=== PATIENT | male | born 1995 | race Caucasian/White ===

== ENCOUNTER 2025-02-27 11:00 | Emergency (ER) | payer OTHER, SELFPAY ==
[2025-02-27 11:07] VITALS: BP 145/98
[2025-02-27 13:46] LABS: Hematocrit 47.2 % (39.0-52.0); Hemoglobin 15.7 g/dL (13.0-18.0); Mean Corp Hgb Conc. 33.3 g/dL (33.0-37.0); Mean Corpuscular Volume 87.9 fL (80.0-94.0); Nucleated Red Blood Cells % 0 % (-); Platelet Count 257 10^3/uL (130-400); Red Cell Dist. Width 14.2 % (11.5-14.5)
[2025-02-27] MEDS: NSS 500 IV (13:48)
[2025-02-27 13:49] VITALS: BP 137/96
[2025-02-27 14:04] LABS: ALT (SGPT) 37 U/L (0-50); AST (SGOT) 18 U/L (17-59); Albumin 4.1 g/dl (3.5-5.0); Alkaline Phosphatase 44 U/L (38-126); Blood Urea Nitrogen 9 mg/dl (9-20); Calcium 9.5 mg/dl (8.4-10.2); Carbon Dioxide 32 mmol/L (22-30); Chloride 104 mmol/L (98-107); Glucose 98 mg/dl (70-99); Magnesium 2.1 mg/dl (1.6-2.3); Potassium 4.3 mmol/L (3.5-5.1); Sodium 138 mmol/L (135-145); Total Protein 6.6 g/dl (6.3-8.2); eGFR > 60.00
[2025-02-27 14:08] LABS: C-Reactive Protein 15.40 mg/L (0.0-10.00)
--- NOTE | 2025-02-27 16:01 | ED.GENMED ---
History of Present Illness
General
Chief Complaint: Back Pain
Source: patient
Exam Limitations: none
Time Seen by Provider: 02/27/25 12:27
Nursing documentation reviewed up to this point in time: agreed with
History of Present Illness
History of Present Illness:
Patient presents to ED secondary to worsening lower and upper arms with numbness sensation over the past 3 months. Patient was evaluated by an orthopedic surgeon and outpatient MRI of the back has been ordered. Denies fever or chills. Denies
urinary or bowel incontinence. Denies direct trauma. Denies weakness. Denies recent illness. Denies previous history of similar symptoms.
Past History
Past History
ED Past Medical History: None
ED Past Surgical History: Appendectomy and Orthopedic (Right wrist surgery)
Social History
Tobacco: Non-smoker
Alcohol: Occasional
Drug: None
Personal: Single
Living: with family
Employment: Employed
Review of Systems
Review of Systems
Allergies reviewed?: Yes
All Other Systems: ROS reviewed and negative except as documented in HPI and ROS
Constitutional: Reports no symptoms
Cardiac: Reports no symptoms
ABD/GI: Reports no symptoms
: Denies incontinence
Musculoskeletal: Reports back pain
Skin: Reports no symptoms
Neurological: Reports numbness
Phy Exam
Physical Exam
Physical Exam:
Physical Exam
General: no apparent distress, not acutely ill. afebrile
Head: nc/at. eomi
Neck: supple. no meningeal signs.
Heart: s1/s2 regular rate and rhythm
Lungs: no acute respiratory distress. clear bilaterally
Abdomen: normal bowel sounds. not tender.
Neuro: alert and oriented x 3. no focal neurological deficits. normal speech
Skin: no rash
Psychiatric: well kept. interactive and cooperative
Extremities: no edema. no calf tenderness
Course
Orders/Labs/Results
Orders:
Orders
02/27/25 13:26
NEUROLOGY CONSULT Urgent
Consulting Provider: Winston Bennett
Was physician already notified: Yes
Reason for consult: numbness/weakness
02/27/25 13:27
0.9% Sodium Chloride 500 ml [Nss] 500 ml IV BOLUS
02/27/25 13:33
CBC/With ESR Urgent
CPK [Creatine Phosphokinase] Urgent
CRP [C-Reactive Protein] Urgent
Comprehensive Metabolic Panel Urgent
Magnesium Urgent
02/27/25 15:49
Triamcinolone Injectable [Kenalog-40] 40 mg IM NOW STA
02/27/25 15:52
Bupivacaine Pf 0.5% [Sensorcaine 0.5% Single Dose] 30 ml INJ OR ONE
Abnormal Lab Results
02/27/25
13:33
Abs Immat Gran (auto) 0.1 H 10^3/uL
(0-0.05)
Absolute Neuts (auto) 8.2 H 10^3/uL
(1.4-6.5)
Absolute Monos (auto) 0.9 H 10^3/uL
(0.1-0.6)
Neutrophils % 76.6 H %
(42.2-75.2)
Lymphocytes % 13.4 L %
(20.5-51.1)
Carbon Dioxide 32 H mmol/L
(22-30)
C-Reactive Protein 15.40 H mg/L
(0.0-10.00)
02/27/25 13:33
02/27/25 13:33
Vital Signs
Initial and Last Documented VS:
Initial Vital Signs
Temp Pulse Resp BP Pulse Ox
98.4 F 110 18 145/98 97
02/27/25 11:07 02/27/25 11:07 02/27/25 11:07 02/27/25 11:07 02/27/25 11:07
Last Documented Vital Signs
Temp Pulse Resp BP Pulse Ox
98.4 F 98 20 134/91 98
02/27/25 11:07 02/27/25 16:15 02/27/25 16:15 02/27/25 16:15 02/27/25 16:15
MDM/Problems Addressed
MDM/Problems Addressed:
Patient evaluated in ED by , neurology. Sciatic nerve block administered by Dr. Bennett, with improvement in symptoms. Feels the patient can be discharged home at this time with Lyrica 75 mg twice daily, along with already scheduled outpatient
MRI. Patient otherwise is afebrile, hemodynamically stable, and on neurologically intact, at time of discharge.
*Pulse Oximetry
SaO2: 98
Oxygen Mode of Delivery: Room air
Patient hypoxic: no
*Critical Care Note
Total Time (30-74mins, 75-104mins- exclusive of procedures): Not Applicable
ED Attending Note
-
Portions of this chart may have been created with voice recognition software.� Occasional wrong word or��sound alike� substitutions may have occurred due to the inherent limitations of voice recognition software.
Discharge Plan
Departure
Patient Disposition: Home (Routine Discharge)
Date of Disposition: 02/27/25
Time of Disposition: 16:04
Patient with high blood pressure during this ER visit?: Yes
Condition: Good
Discharge Problem:
Paresthesia
Instructions: Neuropathic pain
Prescriptions:
New
pregabalin [Lyrica] 75 mg capsule
75 mg PO BID Qty: 30 0RF
No Action
cephalexin 500 mg capsule
500 mg PO TID Qty: 9 0RF
Referrals:
NONE,* [Family Provider, Internal Medicine]
Activity Restrictions/Additional Instructions:
As discussed, please follow-up with your primary care physician and/or orthopedic surgeon for continual evaluation and treatment. Your prescription has been sent electronically to [facility] pharmacy in [place].
Interventions
Interventions:
*Risk Screen - Suicide Last Done: 02/27/25 11:07
*Neglect/Abuse Screening Last Done: 02/27/25 11:07
*ED COVID-19 Vaccine History Last Done: 02/27/25 11:07
*Nursing Disposition Last Done: 02/27/25 16:16
ED-Musculoskeletal Assessment Last Done: 02/27/25 11:24
Discharge Date and Time
Discharge Date/Time: 02/27/25 16:16
Print Language: WOLOF
--- NOTE | 2025-02-27 16:06 | CON.NEURO ---
Neuro Assessment/Plan
Assessment
spoke with patient ddx including CIDP given the presentation of 2 months progressive weakness/numbness somewhat asymmetric, absent right ankle reflex, can have pain component; also could be CRPS if EMG negative for CIDP
right thoracic outlet syndrome, responded to OMT first rib
rt leg sciatica, in setting of SI joint subluxation, sciatic nerve block performed today with improvement in foot/lateral calf pain
Plan
outpatient MRI lumbar as planned
recommending outpatient EMG
Lyrica 75
Consultation
Order
Date of Consultation: 02/27/25
Requesting Provider: Leonard Camacho
Reason for Consult: progressive weakness/numbness
Subjective/Objective
Subjective Data
Date of Service: February 27, 2025
from ED notes:
Patient presents to ED secondary to worsening lower and upper arms with numbness sensation over the past 3 months. Patient was evaluated by an orthopedic surgeon and outpatient MRI of the back has been ordered. Denies fever or chills. Denies
urinary or bowel incontinence. Denies direct trauma. Denies weakness. Denies recent illness. Denies previous history of similar symptoms.
patient reports began with pain and hyperesthesias in the right lateral foot with associated numbness. causing difficulty wearing shoes due to the sensitivity. This has progressed/ascended and spread to the left leg. some associated weakness,
difficulty ambulating distances.
Objective Data
Vital Signs
Temp Pulse Resp BP Pulse Ox
36.9 C 100 18 137/96 98
02/27/25 11:07 02/27/25 13:49 02/27/25 13:49 02/27/25 13:49 02/27/25 16:04
Lab Results
02/27/25 13:33
02/27/25 13:33
Sodium 138 mmol/L (135-145) 02/27/25 13:33
Potassium 4.3 mmol/L (3.5-5.1) 02/27/25 13:33
BUN 9 mg/dl (9-20) 02/27/25 13:33
Glucose 98 mg/dl (70-99) 02/27/25 13:33
Calcium 9.5 mg/dl (8.4-10.2) 02/27/25 13:33
Patient Allergies
peanut Allergy (Verified 02/27/25 11:13)
Unknown
tree nut Allergy (Verified 02/27/25 11:13)
Unknown
Physical Exam
-
AAOx3, speech clear, language intact
VFF, EOMI, face symmetric
decreased sensation pin right leg/lateral calf, decreased vibration left leg. Triple response of Kevin normal.
DTRs 1+ except right ankle absent reflex
grossly ful strength on MMT
tender rt first rib with palpated subluxation, +Sheryl and Paez signs
rt leg longer, palpated SI subluxation with SI joint tenderness
tender rt piriformis
Medications
-
Home Medications
�Medication �Instructions �Recorded
cephalexin 500 mg capsule 500 mg PO TID #9 caps 05/12/22
pregabalin 75 mg capsule (Lyrica) 75 mg PO BID #30 caps 02/27/25
[2025-02-27 16:15] VITALS: BP 134/91
--- NOTE | 2025-02-27 16:20 | W.PN.UPDATE ---
Update Note
Progress Note Update
procedure note
55541 sciatic nerve block
dx M54.3 sciatic neuralgia
10 cc syringe, 22g x1.5 in needle, 7 cc bupivacaine 0.5%, 40 mg Kenalog 40
injected right sciatic nerve at piriformis
== END 2025-02-27 16:16 | disposition home or self-care (01) ==
LOC: EMR 11:00
PROVIDERS: CONSULT PHYSICIAN Psychiatry & Neurology Clinical Neurophysiology; EMERGENCY PHYSICIAN Emergency Medicine
DX: R20.2 Paresthesia of skin (principal); Z79.899 Other long term (current) drug therapy; Z90.49 Acquired absence of other specified parts of digestive tract
CPT/HCPCS: 99283; 96360; 80053; 82550; 83735; 85025; 85652; 86140